=== PATIENT | female | born 2000 | race African-American/Black ===

== ENCOUNTER 2022-07-06 07:31 | Outpatient (CLI) | payer BC ==
[2022-07-06] MEDS ORDERED: EPINEPHrine 1 MG/ML AMP ONE ×2 (07:50→08:49)
[2022-07-06] MEDS ORDERED: Lidocaine 1% PF 5 ML VIAL ONE ×3 (07:50→08:49)
[2022-07-06] MEDS ORDERED: Sodium Bicarbonate 2.5 MEQ/5 ML VIAL ONE (07:51)
[2022-07-06] MEDS ORDERED: Magnevist 469MG/ML 20 ML VIAL ONE (15:55)
[2022-07-06] MEDS ORDERED: Iopamidol 300 61% 50 ML VIAL FS ONE (15:59)
== END 2022-07-06 07:32 | disposition home or self-care (01) ==
LOC: CSHRAD 07:31
PROVIDERS: ATTEND Family Medicine
DX: M25.552 Pain in left hip (principal)
CPT/HCPCS: 27093; A9579; J0171; Q9967